=== PATIENT | female | born 1985 | race Caucasian/White ===

== ENCOUNTER 2017-01-16 04:13 | Emergency (ER) | payer OTHER ==
[~2017-01-16] VITALS: Ht 157.5 cm; Wt 54.4 kg
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
[2017-01-16] MEDS ORDERED: LORAZEPAM INJ 2 MG/ML VIAL ONE (04:51)
[2017-01-16] MEDS ORDERED: IV NS 0.9% 2,000 ML ONE (04:51)
[2017-01-16] MEDS ORDERED: IV SET PRIMARY 1 EA INFUS.SET MC ONE (04:51)
[2017-01-16] MEDS ORDERED: IV NS 0.9% 1,000 ML BAG IV ONE (05:00)
[2017-01-16] MEDS ORDERED: LORAZEPAM INJ 2 MG/ML VIAL IV ONE (05:00)
--- NOTE | 2017-01-16 06:13 | NUR ---
PT SLEEPING IN NO APPARENT DISTRESS, PT ON MONITOR, MD MADE AWARE WILL CONTINUE TO MONITOR,
--- NOTE | 2017-01-16 07:20 | NUR ---
Patient is resting comfortably in bed with eyes closed. Easily aroused. VSS
--- NOTE | 2017-01-16 08:45 | NUR ---
IV removed. Catheter intact and site benign. Pressure and 4x4 applied to site. No bleeding noted.
--- NOTE | 2017-01-16 08:54 | NUR ---
Patient discharged to home in stable condition. Written and verbal after care instructions given. Patient verbalizes understanding of instruction. Pt ambulatory with a steady gait.
[2017-01-16 08:56] VITALS: BP 115/75
== END 2017-01-16 08:56 | disposition home or self-care (01) ==
LOC: ER 04:15
DX: F41.9 Anxiety disorder, unspecified (principal); F15.10 Other stimulant abuse, uncomplicated
CPT/HCPCS: A4606; J2060; J7030; Z7610